=== PATIENT | male | born 1950 | race Caucasian/White ===

== ENCOUNTER 2019-11-22 06:50 | Emergency (ER) | payer OTHER ==
[~2019-11-22] VITALS: Ht 175.3 cm; Wt 72.6 kg
[2019-11-22 06:50] VITALS: BP 128/49
[~2019-11-22 06:50] MED LIST: CODE BLUE PARTICIPANT 1 EA MISC MC ONE; EPINEPHrine PFS 0.1 MG/ML SYR IVP ONE; SODIUM BICARBONATE 8.4% PFS 50 MEQ/50 ML SYR IVP ONE
--- NOTE | 2019-11-22 06:50 | NUR ---
0646-- 68 YO M TRACY FROM HOME FOR CARDIAC ARREST. ARRIVES WITH CPR IN PROGRESS. BAGGING VIA BVM. PER FIRE, LAST SEEN NORMAL @ 2200 LAST NIGHT. STATES PT GOT UP TO GO TO RR @ 0500 AND WENT BACK TO BED. REPORTS PT UNRESPONSIVE @ 0530. FOUND DOWN BY FIRE. INITIAL RHYTHM ASYSTOLE. PT RECEIVED EPI X 8, SODIUM BICARB X 1. PT WAS SHOCKED X 1 @ 200. MOST RECENT RHYTHM V-FIB. Addendum: 11/22/19 at 0723 by MED PM[facility]-- DM, COPD Addendum: 11/22/19 at 0749 by MED CORRCTION IN TIMELINE/EVENT BY : PT GOT UP TO USE RR AND LOCKED DOOR@ 0500. DID NOT RETURN TO BED. WAS DISCOVERED NOT IN BED BY ; WAS FOUND DOWN IN RR BY FIRE AT APPROX 0615.
--- NOTE | 2019-11-22 06:50 | NUR ---
SEE CODE BLUE SHEET.
--- NOTE | 2019-11-22 06:53 | NUR ---
INTUBATED BY DR. PENALOZA #7.5 ET 25 CM @ THE [facility]IP.
[2019-11-22 06:55] VITALS: BP 128/49
--- NOTE | 2019-11-22 07:00 | NUR ---
FAMILY ARRIVED, WAITING IN LOBBY.
--- NOTE | 2019-11-22 07:01 | NUR ---
TIME OF CALLED BY DR. PENALOZA
--- NOTE | 2019-11-22 07:25 | NUR ---
REPORT GIVEN TO AMARA MUJICA. TRANSFER OF CARE AT THIS TIME.
--- NOTE | 2019-11-22 07:28 | NUR ---
FAMILY TAKEN TO CONFERENCE ROOM.
--- NOTE | 2019-11-22 07:43 | NUR ---
MORE HX OBTAINED BY FAMILY-- MT X 3 YEARS AGO, HTN, INSULIN DEPENDENT DM
--- NOTE | 2019-11-22 07:49 | NUR ---
CALLED [facility], REFERENCE NUMBER IS [id number]
--- NOTE | 2019-11-22 08:01 | NUR ---
CALL TO [employer]ER; [employer]ER PAGED AND WILL RETURN CALL.
--- NOTE | 2019-11-22 09:46 | NUR ---
FAMILY CONTACT INFO PROVIDED: CRISTIN AUGUSTINE (SON): [phone] JOSE (DAUGHTER IN LAW): [phone] JAXON (): [phone]
--- NOTE | 2019-11-22 10:55 | NUR ---
FOLLOW UP CALL MADE TO [employer] -- 2 CALLS AHEAD OF US.
--- NOTE | 2019-11-22 11:25 | NUR ---
[facility] CALLED FOR UPDATE; WILL CALL BACK IN 1 HR.
--- NOTE | 2019-11-22 12:50 | NUR ---
[facility] CALLED TO FOLLOW UP; [facility] HAS DECIDED TO NOT PURSUE WITH CASE.
--- NOTE | 2019-11-22 13:30 | NUR ---
CALL FROM [employer]; BODY RELEASED. . [facility]PUTY [facility]ANI ROCHE HAS REALSED BODY.
--- NOTE | 2019-11-22 14:25 | NUR ---
PT MOVED TO MST 115.
--- NOTE | 2019-11-22 18:30 | NUR ---
REPRESENTIVE FROM [facility]/ HOME HERE TO ASSUMED RESPONSIBILTY OF BODY.
== END 2019-11-22 07:01 | disposition expired ==
LOC: MED 06:50
DX: I46.9 Cardiac arrest, cause unspecified (principal)
CPT/HCPCS: 99285; J0171